=== PATIENT | female | born 1985 | race Caucasian/White ===

== ENCOUNTER 2018-02-14 11:17 | Day surgery (SDC) | payer OTHER ==
[2018-02-14 12:26] LABS: ADD MAN DIFF? NO
[2018-02-14 12:35] LABS: ADD UMIC YES; BASOPHIL # 0.1 10^3/ul (0.0-0.1); BASOPHILS % 0.9 % (0.0-2.0); EOSINOPHILS # 0.1 10^3/ul (0.0-0.5); EOSINOPHILS % 1.4 % (0.0-7.0); HEMATOCRIT 38.5 % (37.0-47.0); HEMOGLOBIN 12.7 g/dl (12.0-16.0); LYMPHOCYTES # 2.6 10^3/ul (0.8-2.9); LYMPHOCYTES % 29.4 % (15.0-51.0); MEAN CORPUSCULAR HEMOGLOBIN 28.7 pg (29.0-33.0); MEAN CORPUSCULAR VOLUME 87.1 fl (82.0-101.0); MEAN PLATELET VOLUME 11.3 fl (7.4-10.4); MONOCYTE # 0.4 10^3/ul (0.3-0.9); MONOCYTES % 4.3 % (0.0-11.0); NEUTROPHIL # 5.5 10^3/ul (1.6-7.5); NEUTROPHILS % 63.8 % (39.0-77.0); PLATELET COUNT 314 10^3/UL (140-415); RED BLOOD COUNT 4.42 10^6/ul (4.20-5.40); RED CELL DISTRIBUTION WIDTH 14.3 % (11.5-14.5); UR ASCORBIC ACID NEGATIVE (NEGATIVE); UR BILIRUBIN (Dip) NEGATIVE (NEGATIVE); UR BLOOD (Dip) NEGATIVE (NEGATIVE); UR CLARITY CLEAR (CLEAR); UR COLOR YELLOW (YELLOW); UR GLUCOSE (Dip) NEGATIVE (NEGATIVE); UR KETONES (Dip) NEGATIVE (NEGATIVE); UR LEUKOCYTE ESTERASE (Dip) 1+ Leu/ul (NEGATIVE); UR NITRITE (Dip) NEGATIVE (NEGATIVE); UR RBC 0 /HPF (0-5); UR SPECIFIC GRAVITY (Dip) 1.011 (1.003-1.030); UR TOTAL PROTEIN (Dip) NEGATIVE (NEGATIVE); UR UROBILINOGEN (Dip) NEGATIVE (NEGATIVE); UR WBC 11 /HPF (0-5)
[2018-02-14 12:35] LABS: WHITE BLOOD COUNT 8.7 10^3/ul (4.8-10.8)
[2018-02-14 12:45] LABS: ALANINE AMINOTRANSFERASE 20 IU/L (13-69); ALBUMIN 4.6 g/dl (3.3-4.9); ALBUMIN/GLOBULIN RATIO 1.12; ALKALINE PHOSPHATASE 103 IU/L (42-121); ANION GAP 16 (8-16); ASPARTATE AMINO TRANSFERASE 21 IU/L (15-46); BILIRUBIN,INDIRECT 0.2 mg/dl (0-1.1); BILIRUBIN,TOTAL 0.2 mg/dl (0.2-1.3); CARBON DIOXIDE 25 mmol/L (21-31); CHLORIDE 107 mmol/L (97-110); GLUCOSE 87 mg/dl (70-220); TOTAL PROTEIN 8.7 g/dl (6.1-8.1)
[2018-02-14 12:46] LABS: BLOOD UREA NITROGEN 15 mg/dl (7-20); CALCIUM 9.3 mg/dl (8.4-10.2); POTASSIUM 4.1 mmol/L (3.5-5.1); SODIUM 144 mmol/L (135-144)
[2018-02-14 13:06] LABS: INR 0.92; PROTIME 12.4 Sec (11.9-14.9)
[2018-02-14 13:07] LABS: PARTIAL THROMBOPLASTIN TIME 29.2 Sec (25.0-35.0)
[2018-02-14] MEDS ORDERED: MIDAZOLAM 1 MG/ML 2 ML INJ (15:02)
[2018-02-14] MEDS ORDERED: PHENYLephrine (100 MCG/ML) 5ML SYG (15:20)
[2018-02-14] MEDS ORDERED: BUPIVACAINE 0.5% (SDV) 30 ML INJ (15:24)
[2018-02-14] MEDS ORDERED: BUPIVACAINE 0.25% (STERILE-PAK) 30 ML INJ (15:24)
[2018-02-14] MEDS ORDERED: LIDOCAINE 1%/EPI 30 ML INJ (15:24)
[2018-02-14] MEDS ORDERED: LIDOCAINE 1% (MPF) 30 ML INJ (15:24)
[2018-02-14] MEDS: SODIUM CHLORIDE 0.9% 1L IRRIG IRR (15:43)
[2018-02-14] MEDS ORDERED: ONDANSETRON 4 MG INJ (16:30)
[2018-02-14] MEDS ORDERED: KETOROLAC 30 MG INJ (16:34)
[2018-02-14] MEDS ORDERED: ROCURONIUM 50 MG INJ (16:35)
[2018-02-14] MEDS ORDERED: NEOSTIGMINE 3 MG/3 ML SYRINGE (16:35)
[2018-02-14] MEDS ORDERED: CEFAZOLIN 1 GM INJ (16:35)
[2018-02-14] MEDS ORDERED: LIDOCAINE 100 MG SYRINGE (16:35)
[2018-02-14] MEDS ORDERED: GLYCOPYRROLATE 0.4 MG INJ (16:35)
[2018-02-14] MEDS ORDERED: PROPOFOL 20 ML (16:35)
[2018-02-14] MEDS ORDERED: ONDANSETRON 4 MG INJ IV ×2 (17:00→18:30)
[2018-02-14] MEDS ORDERED: MEPERIDINE 25 MG INJ IV (17:00)
[2018-02-14] MEDS ORDERED: HYDROmorphONE (0.2 MG/ML) 10ML SYG IV (17:00)
[2018-02-14] MEDS: ONDANSETRON 4 MG INJ IV (17:06)
[2018-02-14] MEDS: FENTAnyl 50 MCG/ML VIAL IV (17:06)
[2018-02-14] MEDS: HYDROmorphONE (0.2 MG/ML) 10ML SYG IV (17:07)
[2018-02-14] MEDS: METOCLOPRAMIDE 10 MG INJ IV (18:02)
[2018-02-14] MEDS: DIPHENHYDRAMINE 50 MG INJ IV (18:21)
[2018-02-14] MEDS ORDERED: METOCLOPRAMIDE 10 MG INJ IV (18:30)
[2018-02-14] MEDS ORDERED: EPHEDrine SULFATE 50 MG/5 ML SYG (19:13)
[2018-02-14] MEDS: EPHEDrine SULFATE 50 MG/5 ML SYG IV (19:25)
[2018-02-14] MEDS: morphine 2 MG INJ IV ×2 (19:56→22:00)
[2018-02-14] MEDS: D5W-0.45 NACL + KCL 20 MEQ 1,000 ML IV (20:30)
[2018-02-14] MEDS: PANTOPRAZOLE 40 MG INJ IV (20:51)
[2018-02-14] MEDS: HYDROCODONE/APAP (5/325) TAB PO (23:12)
[2018-02-15] MEDS: morphine 2 MG INJ IV (00:12)
[2018-02-15] MEDS: D5W-0.45 NACL + KCL 20 MEQ 1,000 ML IV ×3 (00:35→12:15)
[2018-02-15] MEDS: ACETAMINOPHEN 1000MG/100ML IV 100 ML IVPB ×2 (03:10→08:35)
[2018-02-15] MEDS: PANTOPRAZOLE 40 MG INJ IV (05:57)
[2018-02-15] MEDS: HYDROCODONE/APAP (5/325) TAB PO (12:15)
== END 2018-02-15 14:54 | disposition home or self-care (01) ==
LOC: SDS 11:17 → REC 19:51 → SDS 11:17 → REC 16:36 → MS1 16:43 → SDS 02-15 14:54
DX: K80.10 Calculus of gallbladder with chronic cholecystitis without obstruction (principal); E66.9 Obesity, unspecified; Z68.35 Body mass index [BMI] 35.0-35.9, adult
CPT/HCPCS: 47562; 80053; 81001; 84703; 85025; 85610; 85730; 88304